=== PATIENT | female | born 1995 | race Caucasian/White ===

== ENCOUNTER → 2017-03-13 | Outpatient (CLI) | payer OTHER | END | disposition home or self-care (01) | LOC: C.RDSM 10-12 10:45 | PROVIDERS: ATTEND Internal Medicine | DX: M25.551 Pain in right hip (principal) ==

== ENCOUNTER → 2017-10-07 | Day surgery (SDC) | payer OTHER ==
[2017-10-04 08:48] VITALS: Ht 177.8 cm; Wt 72.7 kg
[~2017-10-07] VITALS: Ht 177.8 cm; Wt 72.7 kg
[~2017-10-07] MED LIST: BCPILLS PO; BUPIVACAINE 0.25% 2.5MG/ML PF 10 ML VIAL ONE; IOPAMIDOL INJ 61% 15 ML VIAL ONE; LIDOCAINE HCL 1% MPF 5 ML VIAL ONE
--- NOTE | 2017-10-07 14:04 | History & Physical Bridge - [place] ---
H&P Re-Evaluation Bridge Note: I have examined the patient, reviewed the History & Physical and in the interval since the performance of the History & Physical I have noted the following changes of clinical significance: No changes noted
--- NOTE | 2017-10-07 14:06 | [facility] Post Operative Brief Note ---
Immediate Operative Summary Operative Date Oct 07, 2017. Pre-Operative Diagnosis Right Sacoilliitis Post-Operative Diagnosis same Procedure(s) Performed Right Sacroiliac Joint Injection Surgeon Dr. Anca Vela Yard Jacker Surgeon(s) 0 Estimated Blood Loss 0 Findings Consistent with Post-Op Diagnosis Specimens none Drains None Anesthesia Type Local Complication(s) none Disposition Disposition:
--- NOTE | 2017-10-07 14:06 | Discharge Instructions ---
Discharge Instructions Date of Service Oct 07, 2017. Visit Reason for Visit: Right Sacroiliitis Discharge Discharge Diagnosis / Problem: low back pain Discharge Goals Goal(s): Decrease discomfort, Improve function Activity Recommendations Activity Limitations: resume your previous activity Anesthesia . Post Anesthesia Instructions: If you have had General Anesthesia or IV Sedation: * Do not drive today. * Resume driving when surgeon permits. * Do not make important decisions or sign legal documents today. * Call surgeon for: 1. Temperature elevations greater than 101 degrees F. 2. Uncontrollable pain. 3. Excessive bleeding. 4. Persistent nausea and vomiting. 5. Medication intolerance (nausea, vomiting or rash). * For nausea and vomiting use only clear liquids such as: tea, soda, bouillon until nausea subsides, then gradually increase diet as tolerated. * If you have any concerns or questions, call your surgeon's office. If physician is unavailable and it is an emergency, call 911 or go to the nearest emergency room. . Diet Recommendations Recommended Home Diet: resume previous diet Procedures Procedures Performed: Right Sacroiliac Joint Injection Pending Studies Studies pending at discharge: no Medical Emergencies . Who to Call and When: Medical Emergencies: If at any time you feel your situation is an emergency, please call 911 immediately. . Non-Emergent Contact Non-Emergency issues call your: Specialist . . "Provider Documentation" section prepared by Jose A Vela. .
[2017-10-07 14:28] VITALS: BP 121/73; PULSE 56; O2SAT 95
--- NOTE | 2017-10-07 14:31 | OPERATIVE REPORT ---
DATE OF OPERATION: 10/07/2017 PREOPERATIVE DIAGNOSIS: Right sacroiliitis. POSTOPERATIVE DIAGNOSIS: Same. PROCEDURE: Right sacroiliac joint injection under fluoroscopic guidance. INDICATIONS: The patient is a 21-year-old white female who is a member of the swimming team at [employer], who has right-sided pain that is localizing to the SI joint. MRI was unremarkable. She presents today for an SI joint injection to provide her with some relief of the discomfort that she is noticing. PHYSICAL EXAMINATION: Pleasant female, seated comfortably. She has point tenderness to palpation of the right SI joint. Sciatic notch is nontender. She has positive Kimberlee maneuver on the right, negative sacral distraction maneuver, positive compression maneuver. CONSENT: Verbal and written consent was obtained from the patient. Risks and benefits were reviewed. Risks include but are not limited to abscess and allergic reaction. She wishes to proceed. PROCEDURE IN DETAIL: The patient was taken back to the special procedures room of the [facility] where she was maintained in a prone position. Backside was cleansed with Betadine x3 and a dry sterile dressing was applied. Fluoroscope was used to identify the right SI joint. The overlying skin was anesthetized with 2.5 mL of lidocaine 1% with a 25-gauge 1-1/2-inch needle. A 25-gauge 3-1/2-inch needle was then directed into the joint. Isovue 300 contrast showed it to be intraarticular. She then underwent injection after negative aspiration, 1.5 mL of bupivacaine 0.25%, 40 mg of Depo-Medrol. Injection was well tolerated. DISPOSITION: 1. The patient is taken out into the discharge recovery area where she will be discharged home once discharge criteria are met. 2. Follow up in the [facility] office in 4 weeks' time. I attest to the content of the Intraoperative Record and any orders documented therein. Any exception s are noted below.
== END | disposition home or self-care (01) ==
LOC: X.SURG 13:02
PROVIDERS: ATTEND Physical Medicine & Rehabilitation
DX: M46.1 Sacroiliitis, not elsewhere classified (principal)